=== PATIENT | male | born 1960 | race Hispanic/Latino ===

== ENCOUNTER 2017-02-27 18:43 | Emergency (ER) | payer BC ==
[2017-02-27 19:16] LABS: #Eosinphils 0.2 thou/uL (0.0-0.7); #Lymphocytes 2.2 thou/uL (1.20-3.40); #Monocytes 0.5 thou/uL (0.11-0.59); #Neutrophils 3.9 thou/uL (1.40-6.50); %Basophils 0.7 % (0.0-1.0); %Eosinophils 2.9 % (0.0-10.0); %Lymphocytes 32.8 % (21.0-51.0); %Monocytes 7.1 % (0.0-10.0); Hematocrit 45.4 % (42.0-52.0); Mean Platelet Volume 7.8 fL (7.4-10.4); Red Blood Cell (RBC) Count 4.82 mill/uL (4.70-6.10); White Blood Cell (WBC) Count 6.9 thou/uL (4.8-10.8)
--- NOTE | 2017-02-27 19:24 | RAD ---
CHEST ONE VIEW: HISTORY: Tachycardia. FINDINGS: No comparison. Cardiac silhouette is magnified by projection. Pulmonary vasculature is unremarkable. Calcified gr anulomata are consistent with healed granulomatous disease. There is no confluent air space consoli dation or evidence of pneumothorax. youth nutritional monitor leads overlie the chest. IMPRESSION: No active cardiopulmonary abnormalities are demonstrated. POS: [facility]
[2017-02-27 19:40] LABS: ALT (SGPT) 45 U/L (8-55); AST (SGOT) 29 U/L (5-34); Alkaline Phosphatase 57 U/L (40-150); Anion Gap 17 mmol/L (10-20); BUN (Urea Nitrogen) 13 mg/dL (8.4-25.7); Bilirubin, Total 0.7 mg/dL (0.2-1.2); CK (CPK) 266 U/L (30-200); Calc. Creatinine Clearance 0 mL/min (70-130); Calcium 8.8 mg/dL (7.8-10.44); Carbon Dioxide 23 mmol/L (22-29); Chloride 104 mmol/L (98-107); Estimated GFR-MDRD 79; Protein, Total 7.1 g/dL (6.0-8.3)
[2017-02-27 19:51] LABS: Troponin I Less than 0.010 ng/mL (< 0.028)
--- NOTE | 2017-04-08 14:03 | EKG ---
Test Reason : Blood Pressure : / mmHG Vent. Rate : 104 BPM Atrial Rate : 104 BPM P-R Int : 146 ms QRS Dur : 092 ms QT Int : 368 ms P-R-T Axes : 025 -10 009 degrees QTc Int : 483 ms Sinus tachycardia Minimal voltage criteria for LVH, may be normal variant Left axis deviation Borderline ECG Confirmed by FRANCESCO COLÓN DO ([id number]), digital editor CHARLETTE JIMENEZ ([id number]) on 04/08/2017 2:02:44 PM Referred By: Confirmed By:FRANCESCO COLÓN DO
== END 2017-02-27 21:22 | disposition home or self-care (01) ==
LOC: ERS 18:43
DX: I47.1 Supraventricular tachycardia (principal); E03.9 Hypothyroidism, unspecified; K21.9 Gastro-esophageal reflux disease without esophagitis; I10 Essential (primary) hypertension
CPT/HCPCS: 36415; 71010; 80053; 82553; 84484; 85025; 93005; A4353

== ENCOUNTER 2020-02-10 09:46 | Outpatient (CLI) | payer BC ==
--- NOTE | 2020-02-10 10:18 | RAD ---
XR Chest Pa Lat STANDARD HISTORY: Cough COMPARISON: 02/27/2017 FINDINGS: The heart size is normal. The lungs are well expanded without focal areas of consolidation, pneumothorax or pleural effusions. IMPRESSION: No radiographic evidence of acute cardiopulmonary process.
== END 2020-02-10 09:47 | disposition home or self-care (01) ==
LOC: BICRAD 09:46
PROVIDERS: ATTEND Family Medicine
DX: R05 Cough (principal); Z86.19 Personal history of other infectious and parasitic diseases
CPT/HCPCS: 71046